=== PATIENT | male | born 1965 | race Caucasian/White ===

== ENCOUNTER 2024-06-30 17:49 | Emergency (ER) | payer OTHER, BC ==
[2024-06-30] MEDS ORDERED: Acetaminophen/HYDROcodone 325-5 MG Tab PO ONE (17:50)
== END 2024-06-30 19:15 | disposition home or self-care (01) ==
LOC: FB.ED 17:49
DX: S82.831A Other fracture of upper and lower end of right fibula, initial encounter for closed fracture (principal); Z88.2 Allergy status to sulfonamides; Z79.899 Other long term (current) drug therapy; X50.1XXA Overexertion from prolonged static or awkward postures, initial encounter; Y93.01 Activity, walking, marching and hiking
CPT/HCPCS: 73610; 99283; A9270

== ENCOUNTER 2024-09-11 06:32 | Emergency (ER) | payer BC ==
[2024-09-11 07:42] LABS: HEMATOCRIT 32.8 % (38.3-50.1); HEMOGLOBIN 11.2 g/dL (12.9-17.7); MEAN CORPUSCULAR VOLUME 94.3 fL (80.8-98.7); MEAN PLATELET VOLUME 7.6 fL (6.7-11.0); PLATELET COUNT,PLT 121 x10(3)uL (117-477); RED BLOOD CELL COUNT 3.48 x10(6)uL (3.90-5.90); RED CELL DISTRIBUTION WIDTH 13.2 % (12.4-15.0); WHITE BLOOD CELL COUNT,WBC 5.6 x10-3/uL (3.2-10.1)
[2024-09-11 07:50] LABS: BLOOD UREA NITROGEN,BUN 11 mg/dL (7-18); CALCIUM 8.5 mg/dL (8.6-10.2); CARBON DIOXIDE,CO2 22 mmol/L (21-32); CHLORIDE,CL 100 mmol/L (100-110); CREATININE 1.1 mg/dL (0.70-1.30); EST CRCL DRUG DOSING (CG) 74.09 mL/min; ESTIMATED GFR 78 mL/min (>60); GLUCOSE RANDOM 115 mg/dL (80-116); POTASSIUM,K 3.5 mmol/L (3.5-5.3); SODIUM,NA 135 mmol/L (135-145)
[2024-09-11 07:55] LABS: A/G RATIO 0.7; ALANINE AMINOTRANSFERASE,ALT 86 U/L (12-36); ALBUMIN 2.6 g/dL (3.5-5.2); ALKALINE PHOSPHATASE 121 IU/L (56-112); ASPARTATE AMNIOTRANSFERASE,AST 53 IU/L (5-25); PROTEIN TOTAL,TP 6.2 g/dL (6.0-8.0)
[2024-09-11 07:59] LABS: LACTIC ACID 1.1 mmol/L (0.4-2.0)
[2024-09-11 08:17] LABS: BAND PERCENT MAN 2 % (0-6); EOSINOPHILS PERCENT MAN 1 % (0-5); LYMPHOCYTES PERCENT MAN 7 % (13-37); METAMYELOCYTE PERCENT MAN 1 % (0-0); MONOCYTES PERCENT MAN 9 % (4-12); SEG NEUTROPHILS PERCENT MAN 80 % (46-82)
[2024-09-11 08:25] LABS: INFLUENZA A NAA NEGATIVE (NEGATIVE); INFLUENZA B NAA NEGATIVE (NEGATIVE); RESPIRATORY SYNCYTIAL VIR NAA NEGATIVE (NEGATIVE)
[2024-09-11 08:27] LABS: CORONAVIRUS COVID-19 NAA NEGATIVE (NEGATIVE)
[2024-09-11] MEDS: Sodium Chloride 0.9% 1,000 ML IV SCH ×2 (09:09→12:06)
[2024-09-11] MEDS: Azithromycin 500 MG in Sodium Chloride 0.9% 250 ML IV ONE (09:10)
[2024-09-11] MEDS: Ampicillin/Sulbactam Na 3 GM in Sodium Chloride 0.9% 100 ML IV ONE (10:31)
[2024-09-11] MEDS: Acetaminophen 325 MG Tab PO ONE (11:16)
== END 2024-09-11 14:28 | disposition other institution (70) ==
LOC: FB.ED 06:32
DX: J18.9 Pneumonia, unspecified organism (principal); C83.1A Mantle cell lymphoma, in remission; Z88.2 Allergy status to sulfonamides
CPT/HCPCS: 0241U; 36415; 71045; 80053; 83605; 85025; 85379; 86140; 87040; 96365; 96367; 99285; 99285-25; A9270-GY; J0295; J0456; J3490; J7030; J7050

== ENCOUNTER 2025-04-15 10:16 | Emergency (ER) | payer BC | END 2025-04-15 10:53 | disposition home or self-care (01) | LOC: FB.ED 10:16 | DX: J40 Bronchitis, not specified as acute or chronic (principal); Z88.2 Allergy status to sulfonamides; Z79.899 Other long term (current) drug therapy | CPT/HCPCS: 99283 ==